=== PATIENT | male | born 1985 | race Caucasian/White ===

== ENCOUNTER 2018-12-27 01:40 | Inpatient (IN) | payer OTHER ==
[~2018-12-27] VITALS: Ht 175.3 cm; Wt 70.3 kg
[2018-12-27 02:20] VITALS: BP 143/89
--- NOTE | 2018-12-27 02:20 | NUR ---
RN OPEN NOTES RECEIVED PATIENT FROM [facility] VIA [employer]. A/O X4. NO SIGNS OF DISTRESS OR DISCOMFORT. BREATHING EVEN AND UNLABORED. ORIENTED PATIENT TO UNIT AND ROOM. ATTACHED TELE MONITORING WITH SR 89 NOTED. HAS IV ACCESS IN R HAND, PATENT AND INTACT, NO SIGNS OF REDNESS OR INFILTRATION. SKIN INTACT, WITH SCARRING FROM PREVIOUS KERR NOTED. BED IN LOW LOCKED POSITION WITH SIDE RAILS X2. CALL LIGHT WITHIN REACH. PT ADVISED TO USE CALL LIGHT FOR ASSISTANCE. WILL CONTINUE TO MONITOR.
[2018-12-27 03:00] VITALS: BP 143/89
[2018-12-27 04:00] VITALS: BP 154/87
[2018-12-27] MEDS ORDERED: LORAZEPAM INJ 2 MG/ML VIAL IV PRN (04:00)
[2018-12-27] MEDS ORDERED: ONDANSETRON HCL/PF 4 MG/2 ML VIAL IVP PRN (04:00)
[2018-12-27] MEDS ORDERED: MAG HYDROX/AL HYDROX/SIMETH 30 ML UDC PO PRN (04:00)
[2018-12-27] MEDS ORDERED: Z GUARD REMEDY 2 OZ OINT TP PRN (04:00)
[2018-12-27] MEDS ORDERED: MAGNESIUM HYDROXIDE 30 ML UDC PO PRN (04:00)
[2018-12-27] MEDS ORDERED: HYDROCODONE/APAP 5/325MG 1 EACH TABLET PO PRN (04:00)
[2018-12-27] MEDS: IV D5/0.45 NACL 1,000 ML IV PRN ×2 (04:21→18:45)
--- NOTE | 2018-12-27 06:26 | NUR ---
RN NOTES ADMINISTERED MORPHINE 2MG IV FOR HEADACHE 02/04 AT PATIENT REQUEST, VSS. WILL CONTINUE TO MONITOR.
[2018-12-27] MEDS ORDERED: MORPHINE SULFATE INJ 2 MG/ML DISP.SYRIN IV PRN (06:30)
[2018-12-27] MEDS: diphenhydrAMINE HCL 50 MG/ML VIAL IV PRN (07:04)
--- NOTE | 2018-12-27 07:04 | NUR ---
RN NOTES ADMINISTERED BENADRYL 25MG IV ORDERED FOR ITCHINESS, AT PATIENT REQUEST. VSS. WILL CONTINUE TO MONITOR.
[2018-12-27 07:17] LABS: BASOPHILS # (AUTO) 0.1 /CMM (0.0-0.2); BASOPHILS % (AUTO) 0.9 % (0.0-2.0); EOSINOPHILS % (AUTO) 0.9 % (0.0-6.0); HEMATOCRIT 29 % (39-51); HEMOGLOBIN 9.3 g/dL (13.5-17.5); LYMPHOCYTES # (AUTO) 2.3 /CMM (0.8-4.8); LYMPHOCYTES % (AUTO) 31.5 % (20.0-44.0); MEAN CORPUSCULAR HGB CONC 32 g/dl (31.0-36.0); MEAN CORPUSCULAR VOLUME 80 fL (80-96); MONOCYTES # (AUTO) 0.8 /CMM (0.1-1.30); MONOCYTES % (AUTO) 11.6 % (2.0-12.0); NEUTROPHILS % (AUTO) 55.1 % (43.0-81.0); PLATELET COUNT (AUTO) 347 /CMM (150-450); RED BLOOD CELL COUNT(AUTO) 3.62 MIL/uL (4.5-6.0); WHITE BLOOD COUNT (AUTO) 7.2 K/uL (4.3-11.0)
--- NOTE | 2018-12-27 07:23 | NUR ---
RN CLOSING NOTES PATIENT AWAKE IN BED. A/OX4. NO SIGNS OF DISTRESS OR DISCOMFORT. BREATHING EVEN AND UNLABORED. ON TELE MONITORING WITH SR 77 NOTED. IV ACCESS IN R HAND WITH D5 1/2NS INFUSING, PATENT AND INTACT, NO SIGNS OF REDNESS OR INFILTRATION. ALL NEEDS MET. NO SIGNIFICANT CHANGES THROUGH THE NIGHT. BED IN LOW LOCKED POSITION WITH SIDE RAILS X2. CALL LIGHT WITHIN REACH. WILL ENDORSE TO AM SHIFT FOR JORDYN.
[2018-12-27 07:27] LABS: ALBUMIN 3.5 g/dL (3.4-5.0); BILIRUBIN,TOTAL 1.8 mg/dL (0.2-1.0); CALCIUM, SERUM 8.9 mg/dL (8.5-10.1); CREATININE 1.1 mg/dL (0.6-1.3); POTASSIUM 3.3 mmol/L (3.5-5.1); TOTAL PROTEIN, SERUM 7.4 g/dL (6.4-8.2)
[2018-12-27] MEDS ORDERED: TRAM50TA2 PO (07:58)
[2018-12-27] MEDS ORDERED: GABA-534 PO (07:58)
[2018-12-27] MEDS ORDERED: CHLO25TA2 PO (07:58)
[2018-12-27] MEDS ORDERED: AMLO10TA7 PO (07:58)
[2018-12-27 08:00] VITALS: BP 146/90
--- NOTE | 2018-12-27 08:00 | NUR ---
RN NOTES RECEIVED PATIENT IN THE BED A/O X4, PATIENT STABLE, NO ACUTE RESPIRATORY DISTRESS. PATIENT TELE HR-90. PATIENT REFUSED PAIN, NO N/V AT THIS TIME. PATIENT AMBULATORY SELF CARE. SCHEDULED MEDICATION ADMINISTERED. INFUSING D5 1/2 NS AT 75 ML HE INTACT. CALL LIGHT WITHIN TO REACH, SAFETY PRECAUTION MAINTAINED ALL THE TIME.
[2018-12-27] MEDS ORDERED: PANTOPRAZOLE 40 MG VIAL IV SCH (09:00)
[2018-12-27] MEDS: POTASSIUM CHLORIDE 20 MEQ TAB.PRT.SR PO SCH ×2 (10:50→10:52)
[2018-12-27] MEDS: NEXIUM 40 MG VIAL IV SCH ×2 (10:50→18:00)
--- NOTE | 2018-12-27 12:00 | NUR ---
RN NOTES PATIENT WALKING AROUND, ADMINISTERED SCHEDULED MEDICATION. SEEN BY Dr. ROLLINS GI SPECIALIST. PATIENT CLEAR LIQUID DIET NOW. ALSO SIGN CONSENT FORM FOR EGD ON SATURDAY SCHEDULED. SAFETY PRECAUTION MAINTAINED ALL THE TIME.
[2018-12-27] MEDS: GABAPENTIN 300 MG CAPSULE PO SCH (13:59)
[2018-12-27] MEDS: TRAMADOL HCL 50 MG TABLET PO SCH ×2 (14:00→18:01)
[2018-12-27] MEDS: AMLODIPINE BESYLATE 10 MG TABLET PO SCH (14:01)
[2018-12-27 16:00] VITALS: BP 148/97
--- NOTE | 2018-12-27 18:30 | NUR ---
RN NOTES PATIENT IN THE BED WATCHING TV. PATIENT REFUSED PAIN, V/S STABLE, NO N/V AT THIS TIME. CALL LIGHT WITHIN TO REACH. SAFETY PRECAUTION MAINTAINED ALL THE TIME. ENDORSED ONCOMING NURSE FOR PLAN OF CARE.
--- NOTE | 2018-12-27 19:30 | NUR ---
RN medsurg opening notes Received Pt from morning nurse. Pt is alert and oriented X4. Pt is sitting in bed comfortably watching TV. Pt denies any pain or discomfort. No nausea or vomiting. Afebrile. Respiration is equal and unlabored. NO SOB. Iv sites on R hand#22g is intact, patent and infusing well D5 1/2NS @ 75ml/hr. Safety precautions is maintained. Bed at low position and call light is within reach. Will continue to monitor.
[2018-12-27 20:00] VITALS: BP 147/95
[2018-12-27] MEDS: ZOLPIDEM TARTRATE 5 MG TABLET PO PRN (21:38)
--- NOTE | 2018-12-27 21:40 | NUR ---
Rn medsurnora notes Administered Ambien per Pt per request. Pt is sitting in bed comfortably watching TV. No SOB. no nausea or vomiting. Will continue to monitor.
[2018-12-27 22:43] LABS: APPEARANCE,URINE CLEAR (CLEAR); BILIRUBIN,URINE NEGATIVE (NEGATIVE); BLOOD, URINE NEGATIVE Ery/uL (NEGATIVE); COLOR,URINE DARK YELLO (YELLOW); KETONES,URINE NEGATIVE (NEGATIVE); LEUKOCYTE ESTERASE ,URINE TRACE (NEGATIVE); NITRITE, URINE NEGATIVE (NEGATIVE); PROTEIN,URINE 1+ mg/dl (NEGATIVE); UGLUCOSE NEGATIVE (NEGATIVE); UROBILINOGEN,URINE >=8.0 EU/dL (0.2)
[2018-12-27 22:49] LABS: BACTERIA,URINE None seen /HPF (None Seen); RBC,URINE NONE SEEN /HPF (0-2); WBC,URINE 21-50 /HPF (0-3)
--- NOTE | 2018-12-28 06:49 | NUR ---
RN medsurg closing notes Pt is resting in bed comfortably with eyes closed. Awaken easily. Pt is alert and oriented X4. Respiration is equal and unlabored. NO SOB. No nausea or vomiting. No pain or any discomfort at this time. IV sites is on R hand #22g , intact, patent and infusing well D5 1/2NS at 75ml/hr. Meds have been given and assisted all needs. Safety precautions is maintained. Bed at low position and call light is within reach. Will endorse to morning nurse for JORDYN.
[2018-12-28 07:39] LABS: BASOPHILS # (AUTO) 0.1 /CMM (0.0-0.2); HEMATOCRIT 28 % (39-51); HEMOGLOBIN 9.2 g/dL (13.5-17.5); LYMPHOCYTES % (AUTO) 38.5 % (20.0-44.0); MEAN CORPUSCULAR HGB CONC 33 g/dl (31.0-36.0); MEAN CORPUSCULAR VOLUME 81 fL (80-96); MONOCYTES # (AUTO) 0.5 /CMM (0.1-1.30); MONOCYTES % (AUTO) 8.7 % (2.0-12.0); NEUTROPHILS # (AUTO) 2.5 /CMM (1.8-8.9); NEUTROPHILS % (AUTO) 47.8 % (43.0-81.0); PLATELET COUNT (AUTO) 310 /CMM (150-450); RED BLOOD CELL COUNT(AUTO) 3.49 MIL/uL (4.5-6.0); WHITE BLOOD COUNT (AUTO) 5.2 K/uL (4.3-11.0)
[2018-12-28 07:52] LABS: CALCIUM, SERUM 8.7 mg/dL (8.5-10.1); MAGNESIUM 1.7 mg/dL (1.8-2.4); PHOSPHORUS 3.7 mg/dL (2.5-4.9); POTASSIUM 3.6 mmol/L (3.5-5.1)
[2018-12-28 08:00] VITALS: BP 144/85
--- NOTE | 2018-12-28 08:00 | NUR ---
RN NOTES Seen patient stable in the room lying in the bed. Patient on clear liquid diet, refused pain, refused n/v at this time, infusing D5 1/2 NS at 75 ml/hr on right hand. patient ambulatory self care. safety precaution maintained all the time.
[2018-12-28] MEDS ORDERED: SPIRONOLACTONE 25 MG TABLET PO SCH (09:00)
[2018-12-28] MEDS ORDERED: SPIRONOLACTONE 50 MG TABLET PO SCH (09:00)
[2018-12-28 09:20] VITALS: BP 144/85
[2018-12-28] MEDS: NEXIUM 40 MG VIAL IV SCH ×2 (09:54→17:12)
[2018-12-28] MEDS: AMLODIPINE BESYLATE 10 MG TABLET PO SCH (09:55)
[2018-12-28] MEDS: GABAPENTIN 300 MG CAPSULE PO SCH (09:56)
[2018-12-28] MEDS: TRAMADOL HCL 50 MG TABLET PO SCH ×2 (09:57→17:12)
[2018-12-28] MEDS ORDERED: MGSO4/D5W 100 ML IV ONE (10:00)
[2018-12-28] MEDS ORDERED: Magnesium 1GM/D5W 100ML PREMIX PIGGYBACK IV ONE (10:00)
[2018-12-28] MEDS: IV D5/0.45 NACL 1,000 ML IV PRN (10:03)
--- NOTE | 2018-12-28 11:10 | NUR ---
rn notes restart new iv line gauge 22 on left wrist. Infusing Magnesium 1 g iv per med order. safety precaution maintained all the time.
[2018-12-28 15:53] VITALS: BP 145/89
--- NOTE | 2018-12-28 18:30 | NUR ---
RN NOTES PATIENT STABLE SCHEDULED MEDICATION ADMINISTERED. V/S STABLE. PATIENT WALKING IN THE HALLWAY. ENDORSED ONCOMING NURSE PLAN OF CARE.
--- NOTE | 2018-12-28 19:00 | NUR ---
RN medsurnora opening notes Received Pt from morning nurse. Pt is alert and oriented X4. Pt is ambulating in room. Steady gait. Pt denies any pain or any discomfort at this time. respiration is equal and unlabored. No nausea or vomiting. Afebrile. IV sites on L Wrist is intact, patent and infusing well D5 1/2 NS @ 75ml/hr. Safety precautions is maintained. Bed at low position and call light is within reach. Will continue to monitor and assist all needs.
[2018-12-28 20:00] VITALS: BP 154/97
[2018-12-28] MEDS: diphenhydrAMINE HCL 50 MG/ML VIAL IV PRN (20:31)
--- NOTE | 2018-12-28 20:43 | NUR ---
RN medsurg notes Administered Benadryl Inj 25mg IV push as ordered for itchiness per Pt request. VS is stable. Will continue to monitor.
--- NOTE | 2018-12-28 20:47 | NUR ---
STEPHON johnson notes Pt is going for EGD procedure tomorrow. Pt status is NPO now. Informed and educated the Pt about the EGD procedure. Pt verbalized understanding. Will continue to monitor.
--- NOTE | 2018-12-28 23:04 | NUR ---
RN medr notes Pt is resting in bed comfortably with eyes closed. Awaken easily. Pt denies any pain or any discomfort. NO SOB. No nausea or vomiting. Will continue to monitor.
[2018-12-29] MEDS: ZOLPIDEM TARTRATE 5 MG TABLET PO PRN (01:59)
--- NOTE | 2018-12-29 02:02 | NUR ---
RN medsurg notes Administered Ambien 5mg for sleeping per Pt request. VS is stable. Will continue to monitor.
[2018-12-29] MEDS: IV D5/0.45 NACL 1,000 ML IV PRN (02:20)
[2018-12-29 06:43] LABS: BASOPHILS % (AUTO) 0.8 % (0.0-2.0); HEMATOCRIT 33 % (39-51); HEMOGLOBIN 10.3 g/dL (13.5-17.5); LYMPHOCYTES # (AUTO) 1.8 /CMM (0.8-4.8); LYMPHOCYTES % (AUTO) 40.2 % (20.0-44.0); MEAN CORPUSCULAR HGB CONC 32 g/dl (31.0-36.0); MEAN CORPUSCULAR VOLUME 81 fL (80-96); MONOCYTES # (AUTO) 0.4 /CMM (0.1-1.30); MONOCYTES % (AUTO) 8.9 % (2.0-12.0); NEUTROPHILS # (AUTO) 2.1 /CMM (1.8-8.9); NEUTROPHILS % (AUTO) 46.1 % (43.0-81.0); PLATELET COUNT (AUTO) 345 /CMM (150-450); RED BLOOD CELL COUNT(AUTO) 4.03 MIL/uL (4.5-6.0); WHITE BLOOD COUNT (AUTO) 4.6 K/uL (4.3-11.0)
[2018-12-29 06:46] LABS: CALCIUM, SERUM 9.4 mg/dL (8.5-10.1); MAGNESIUM 2.2 mg/dL (1.8-2.4); PHOSPHORUS 4.2 mg/dL (2.5-4.9); POTASSIUM 4.1 mmol/L (3.5-5.1)
--- NOTE | 2018-12-29 07:00 | NUR ---
RN medsurg closing notes Pt is resting in bed comfortably with eyes closed. Awaken easily. Pt is alert and oriented X4. Respiration is equal and unlabored. NO SOB. No nausea or vomiting. No pain or any discomfort at this time. Pt is NPO for EGD procedure today at 0900 am. Informed consent has been signed. IV sites is on L wrist #22g, intact, patent and infusing well D5 1/2NS at 75ml/hr. Pt tolerating well. PRN meds have been given as ordered. All needs met. Safety precautions is maintained. Bed at low position and call light is within reach. Will endorse to morning nurse for JORDYN.
--- NOTE | 2018-12-29 07:30 | NUR ---
m/s fondant cooker: initial assessment received pt in bed awake, a/ox4; ambulatory. pt for egd, kept pt npo. all consents in chart. no c/o n/v/d. instructed to call for assistance. will continue to monitor.
--- NOTE | 2018-12-29 08:40 | NUR ---
m/s corrective therapy aide teacher: notes picked up by o.r. team at this time via gurney with chart.
[2018-12-29 08:41] VITALS: BP 137/88
[2018-12-29] MEDS ORDERED: ANESTHESIA TRAY IN PYXIS 1 EA TRAY MC ONE (09:04)
--- NOTE | 2018-12-29 09:55 | NUR ---
m/s residential carpenter: notes received pt from recovery room awake, a/ox4. pt ambulate to his room and eager to go home. pt got dress. pt for d'c home today per dr. caldera. awaiting order.
--- NOTE | 2018-12-29 10:00 | NUR ---
m/s university internship: notes order received from dr. caldera with prescription. order acknowledged.
--- NOTE | 2018-12-29 10:10 | NUR ---
m/s clinical nursing instructor: notes noted pt walking out by the elevator. ask pt to go back to his room and will prefer his discharge instructions, stated, "i want to go home now."
--- NOTE | 2018-12-29 10:30 | NUR ---
m/s dragsaw operator: notes discharge instructions with prescription given to pt and verbalized understanding. pt request for notes from work and given by dr. caldera. h/l removed with tip intact. pt called his sister to pick him up. late breakfast served. will continue to monitor.
[2018-12-29] MEDS: NEXIUM 40 MG VIAL IV SCH (11:12)
[2018-12-29] MEDS ORDERED: PANTOPRAZOLE 40 MG TABLET.DR PO SCH (11:30)
--- NOTE | 2018-12-29 11:52 | NUR ---
m/s holter technician: discharged discharged home accompanied by sister via private car in stable condition with all valuables and d'c papers.
== END 2018-12-29 11:50 | disposition home or self-care (01) | DRG 241 ==
LOC: TELE 02:15 → MED 09:18
PROVIDERS: ADMIT Nurse Practitioner Acute Care
PROC: 0DB78ZX Excision of Stomach, Pylorus, Via Natural or Artificial Opening Endoscopic, Diagnostic (ICD-10-PCS; principal; 2018-12-29)
DX: K29.71 Gastritis, unspecified, with bleeding (principal); D63.8 Anemia in other chronic diseases classified elsewhere; E86.0 Dehydration; K21.0 Gastro-esophageal reflux disease with esophagitis; E87.6 Hypokalemia; K44.9 Diaphragmatic hernia without obstruction or gangrene; M19.90 Unspecified osteoarthritis, unspecified site; I10 Essential (primary) hypertension; M79.2 Neuralgia and neuritis, unspecified; F41.9 Anxiety disorder, unspecified; Z87.11 Personal history of peptic ulcer disease
CPT/HCPCS: 36415; 80048-TC; 80053-TC; 80061-TC; 81000-TC; 83735-TC; 84100-TC; 85025-TC; 85610-TC; 87081-TC; 87086-TC; 88305-TC; 88313-TC; 88342; G0378; J1200; J2270; J2704; J3475; J3490

== ENCOUNTER 2021-02-17 19:11 | Emergency (ER) | payer OTHER ==
[~2021-02-17] VITALS: Ht 175.3 cm; Wt 81.6 kg
[~2021-02-17 19:11] MED LIST: AMLO-213 PO; CHLO25TA2 PO; GABA-534 PO; TRAM50TA2 PO
--- NOTE | 2021-02-17 19:25 | NUR ---
PATIENT C/O ABDOMEN WITH CHEST AREA PAIN FROM INDIGESTION, HX OF ULCER. PATIENT IS A/OX 4, RR EVEN AND UNLABORED, NO SOB NTOED. PATIENT CONNECTED TO CURATOR OF PHOTOGRAPHY AND PRINTS. WILL CONTINUE TO MONITOR.
[2021-02-17] MEDS ORDERED: LIDOCAINE VISCOUS 2% UD 15 ML UDC ONE (19:53)
[2021-02-17] MEDS ORDERED: FAMOTIDINE (20 MG) 20 MG TABLET ONE (19:53)
[2021-02-17] MEDS ORDERED: MAG HYDROX/AL HYDROX/SIMETH 30 ML UDC ONE (19:53)
[2021-02-17] MEDS: MAG HYDROX/AL HYDROX/SIMETH 30 ML UDC PO ONE (19:58)
[2021-02-17] MEDS: LIDOCAINE VISCOUS 2% UD 15 ML UDC MM ONE (19:58)
[2021-02-17] MEDS: FAMOTIDINE (20 MG) 20 MG TABLET PO ONE (19:58)
[2021-02-17 20:11] LABS: BASOPHILS # (AUTO) 0.1 K/uL (0.0-0.2); BASOPHILS % (AUTO) 1.6 % (0.0-2.0); EOSINOPHILS % (AUTO) 0.7 % (0.0-6.0); HEMATOCRIT 30 % (39-51); HEMOGLOBIN 8.9 g/dL (13.5-17.5); LYMPHOCYTES # (AUTO) 2.8 K/uL (0.8-4.8); LYMPHOCYTES % (AUTO) 41.4 % (20.0-44.0); MEAN CORPUSCULAR HGB CONC 30 g/dl (31.0-36.0); MEAN CORPUSCULAR VOLUME 69 fL (80-96); MONOCYTES % (AUTO) 14.9 % (2.0-12.0); NEUTROPHILS # (AUTO) 2.8 K/uL (1.8-8.9); NEUTROPHILS % (AUTO) 41.4 % (43.0-81.0); PLATELET COUNT (AUTO) 289 K/uL (150-450); RED BLOOD CELL COUNT(AUTO) 4.27 MIL/uL (4.5-6.0); WHITE BLOOD COUNT (AUTO) 6.9 K/uL (4.3-11.0)
[2021-02-17 20:25] LABS: CALCIUM, SERUM 8.3 mg/dL (8.5-10.1); CREATININE 0.9 mg/dL (0.6-1.3); POTASSIUM 3.5 mmol/L (3.5-5.1)
[2021-02-17 20:31] LABS: ALBUMIN 3.4 g/dL (3.4-5.0); BILIRUBIN,DIRECT 0.2 mg/dL (0.0-0.2); BILIRUBIN,TOTAL 0.2 mg/dL (0.2-1.0); TOTAL PROTEIN, SERUM 8.7 g/dL (6.4-8.2)
[2021-02-17] MEDS ORDERED: ONDANSETRON HCL/PF 4 MG/2 ML VIAL ONE (20:52)
[2021-02-17] MEDS ORDERED: MORPHINE SULFATE INJ 4 MG/ML DISP.SYRIN ONE (20:52)
[2021-02-17] MEDS: IV NS 0.9% 1,000 ML BAG IV ONE (20:57)
[2021-02-17] MEDS: ONDANSETRON HCL/PF 4 MG/2 ML VIAL IVP ONE (21:02)
[2021-02-17] MEDS: MORPHINE SULFATE INJ 2 MG/ML DISP.SYRIN IV ONE (21:02)
[2021-02-17 21:31] LABS: LYMPHOCYTES % (MANUAL) 45 % (16-48); MONOCYTES % (MANUAL) 11 % (0-11.0); NEUTROPHILS % (MANUAL) 44 (42-76)
[2021-02-17] MEDS ORDERED: HYDROMORPHONE 1 MG/1 ML DISP.SYRIN ONE (22:36)
[2021-02-17] MEDS: HYDROMORPHONE 1 MG/1 ML DISP.SYRIN IV ONE (22:41)
[2021-02-17] MEDS ORDERED: DICY10CA37 PO (22:44)
[2021-02-17] MEDS ORDERED: SUCR1TAB PO (22:44)
[2021-02-17] MEDS ORDERED: PANT40TA2 PO (22:44)
--- NOTE | 2021-02-17 23:15 | NUR ---
Patient discharged to home in stable condition. Rx and Written and verbal after care instructions given. Patient verbalizes understanding of instruction.
[2021-02-18 00:57] VITALS: BP 128/67
== END 2021-02-18 00:58 | disposition home or self-care (01) ==
LOC: ER 20:41
DX: K85.90 Acute pancreatitis without necrosis or infection, unspecified (principal); D64.9 Anemia, unspecified; R11.2 Nausea with vomiting, unspecified; I10 Essential (primary) hypertension; Z98.890 Other specified postprocedural states; Z88.1 Allergy status to other antibiotic agents; Z91.048 Other nonmedicinal substance allergy status; Z79.899 Other long term (current) drug therapy
CPT/HCPCS: 36415; 76705; 80048; 80076; 83690; 85007; 85025; 96361; 96374; 96375; 99284; J1170; J2270; J2405; J7030

== ENCOUNTER 2021-03-02 08:43 | Inpatient (IN) | payer OTHER ==
[~2021-03-02] VITALS: Ht 175.3 cm; Wt 78.0 kg
[~2021-03-02 08:43] MED LIST changes: +DICY10CA37 PO; +PANT40TA2 PO; +SUCR1TAB PO
--- NOTE | 2021-03-02 08:49 | NUR ---
TO ER BED 3, C/O INTERMITTENT NAUSEA AND VOMITING WITH EPIGASTRIC PAIN, ATTACHED TO MONITOR, SALINE LOCK ESTABLISHED
[2021-03-02] MEDS ORDERED: FAMOTIDINE/PF INJ 20 MG/2 ML VIAL IV ONE ×2 (09:00→09:36)
[2021-03-02 09:21] LABS: BASOPHILS # (AUTO) 0.1 K/uL (0.0-0.2); BASOPHILS % (AUTO) 1.6 % (0.0-2.0); EOSINOPHILS % (AUTO) 0.1 % (0.0-6.0); HEMATOCRIT 29 % (39-51); LYMPHOCYTES # (AUTO) 0.9 K/uL (0.8-4.8); LYMPHOCYTES % (AUTO) 12.4 % (20.0-44.0); MEAN CORPUSCULAR HGB CONC 31 g/dl (31.0-36.0); MEAN CORPUSCULAR VOLUME 67 fL (80-96); MONOCYTES # (AUTO) 1.1 K/uL (0.1-1.30); MONOCYTES % (AUTO) 15.5 % (2.0-12.0); NEUTROPHILS # (AUTO) 5.2 K/uL (1.8-8.9); NEUTROPHILS % (AUTO) 70.4 % (43.0-81.0); PLATELET COUNT (AUTO) 300 K/uL (150-450); RED BLOOD CELL COUNT(AUTO) 4.32 MIL/uL (4.5-6.0); WHITE BLOOD COUNT (AUTO) 7.4 K/uL (4.3-11.0)
[2021-03-02 09:29] LABS: CREATININE 1.3 mg/dL (0.6-1.3); POTASSIUM 3.3 mmol/L (3.5-5.1)
[2021-03-02 09:35] LABS: ALBUMIN 3.7 g/dL (3.4-5.0); BILIRUBIN,DIRECT 0.6 mg/dL (0.0-0.2); BILIRUBIN,TOTAL 1.5 mg/dL (0.2-1.0); TOTAL PROTEIN, SERUM 9.3 g/dL (6.4-8.2)
--- NOTE | 2021-03-02 09:55 | NUR ---
HOSPITAL SUPERVISOR AT BEDSIDE
[2021-03-02] MEDS ORDERED: ASPIRIN EC 325 MG TABLET.DR PO ONE ×2 (09:56→10:00)
[2021-03-02] MEDS ORDERED: ZOLP5TAB8 PO (10:04)
--- NOTE | 2021-03-02 10:04 | NUR ---
CALLED CARDIO [phone] BLAKE
--- NOTE | 2021-03-02 10:56 | NUR ---
[facility] CASH REGISTER BALANCER CALLED [phone] RE PT STATUS
--- NOTE | 2021-03-02 11:34 | NUR ---
COVID SWAB DEONE AND SENT TO LAB
[2021-03-02 11:47] LABS: LYMPHOCYTES % (MANUAL) 11 % (16-48); MONOCYTES % (MANUAL) 12 % (0-11.0); NEUTROPHILS % (MANUAL) 77 (42-76)
[2021-03-02] MEDS ORDERED: ACETAMINOPHEN 325 MG TABLET PO PRN (12:00)
[2021-03-02] MEDS ORDERED: DICYCLOMINE HCL 10 MG CAPSULE PO PRN (12:00)
[2021-03-02] MEDS ORDERED: HYDROCODONE/APAP 5/325MG TABLET PO PRN (12:00)
[2021-03-02] MEDS ORDERED: MAGNESIUM HYDROXIDE 30 ML UDC PO PRN (12:00)
[2021-03-02] MEDS: PANTOPRAZOLE 40 MG TABLET.DR PO SCH (12:00)
[2021-03-02] MEDS ORDERED: Z GUARD REMEDY 2 OZ OINT TP PRN (12:00)
[2021-03-02] MEDS ORDERED: ONDANSETRON HCL/PF 4 MG/2 ML VIAL IVP PRN (12:00)
[2021-03-02] MEDS ORDERED: HOME MED MISCELLANEOUS XX SCH (12:00)
[2021-03-02] MEDS ORDERED: MORPHINE SULFATE INJ 2 MG/ML DISP.SYRIN IV PRN (12:00)
--- NOTE | 2021-03-02 12:14 | NUR ---
VENOUS US AT BEDSIDE
--- NOTE | 2021-03-02 14:01 | NUR ---
GAVE REPORT TO GELY SZYMANSKI FOR JORDYN
--- NOTE | 2021-03-02 14:40 | NUR ---
RN NOTE RECEIVED REPORT FROM STEPHON GRAVES. PATIENT WAS BROUGHT TO RM 307-1 VIA [facility]. A/O X 4. AMBULATORY. VS BP 147/105 CA 84 RR 18 T 98 SA02 99%. ON ROOM AIR, NO SOB NOTED. IN NO APPARENT DISTRESS. IV ACCESS ON R HAND #22 G, INTACT AND PATENT. SAFETY MEASURES MAINTAINED. BED IN LOWEST POSITION, BRAKES LOCKED. SIDE RAILS UP X2. CALL LIGHT WITHIN REACH. WILL CONTINUE PLAN OF CARE.
[2021-03-02] MEDS: TRAMADOL HCL 50 MG TABLET PO SCH (16:59)
[2021-03-02] MEDS: SUCRALFATE 1 G TABLET PO SCH (17:22)
--- NOTE | 2021-03-02 18:05 | NUR ---
RN CLOSING NOTE PATIENT RESTING IN BED. A/O X 4. AMBULATORY. ON ROOM AIR, SATURATING WELL AT 99%. NO SOB NOTED. IN NO APPARENT DISTRESS. IV ACCESS ON R HAND #22 G, INTACT AND PATENT. DUE MEDS GIVEN ORDERED. ABLE TO MAKE NEEDS KNOWN. SAFETY MEASURES MAINTAINED. BED IN LOWEST POSITION, BRAKES LOCKED. SIDE RAILS UP X2. KEPT CALL LIGHT WITHIN REACH. WILL ENDORSE CONTINUITY OF CARE TO ONCOMING SHIFT.
--- NOTE | 2021-03-02 19:02 | NUR ---
RN NOTE PULLED OUT ANOTHER SUCRALFATE PO TAB D/T PT GAGGED AND MEDICATION FELL ON THE FLOOR.
--- NOTE | 2021-03-02 19:30 | NUR ---
RN OPENING NOTE PATIENT IS AMBULATING IN HIS ROOM, PATIENT IS A/O X 4, ABLE TO MAKE NEEDS KNOWN. PATIENT'S TELE MONITOR READS [address] WITH INVERTED T WAVE. PATIENT TOLERATES ROOM AIR, BREATHING EVEN AND UNLABORED. NO COMPLAINS OF CHEST PAIN, N/V AT THIS TIME. R HAND IV ACCESS PATENT AND INTACT. SAFETY MEASURES IN PLACE: BED IN LOCKED AND IN LOWEST POSITION, CALL LIGHT WITHIN REACH, SIDE RAILS UP. WILL MONITOR PATIENT CLOSELY.
[2021-03-02 20:00] VITALS: BP 155/98
[2021-03-02] MEDS: TEMAZEPAM 15 MG CAPSULE PO PRN (21:07)
[2021-03-03] VITALS: BP 106/54
[2021-03-03] MEDS: MAG HYDROX/AL HYDROX/SIMETH 30 ML UDC PO PRN (01:19)
--- NOTE | 2021-03-03 01:20 | NUR ---
RN NOTE PATIENT COMPLAINING OF HEART BURN, MAALOX GIVEN.
[2021-03-03 04:00] VITALS: BP 144/99
[2021-03-03 05:49] LABS: BILIRUBIN,URINE MODERATE (NEGATIVE); LEUKOCYTE ESTERASE ,URINE Negative (NEGATIVE); NITRITE, URINE Positive (NEGATIVE); PROTEIN,URINE 100 mg/dl (NEGATIVE); UGLUCOSE Negative (NEGATIVE); UROBILINOGEN,URINE >=8.0 EU/dL (0.2)
[2021-03-03 05:58] LABS: COLOR,URINE ORANGE (YELLOW)
[2021-03-03 05:59] LABS: BACTERIA,URINE None seen /HPF (None Seen); SQUAMOUS EPITHELIAL CELL,UR Few /HPF (None Seen)
[2021-03-03 06:00] LABS: RBC,URINE 0-2 /HPF (0-2)
[2021-03-03 06:06] LABS: BASOPHILS # (AUTO) 0.1 K/uL (0.0-0.2); BASOPHILS % (AUTO) 0.9 % (0.0-2.0); EOSINOPHILS % (AUTO) 1.7 % (0.0-6.0); HEMATOCRIT 27 % (39-51); HEMOGLOBIN 8.2 g/dL (13.5-17.5); LYMPHOCYTES # (AUTO) 1.5 K/uL (0.8-4.8); LYMPHOCYTES % (AUTO) 27.8 % (20.0-44.0); MEAN CORPUSCULAR HGB CONC 31 g/dl (31.0-36.0); MEAN CORPUSCULAR VOLUME 68 fL (80-96); MONOCYTES % (AUTO) 17.5 % (2.0-12.0); NEUTROPHILS # (AUTO) 2.9 K/uL (1.8-8.9); NEUTROPHILS % (AUTO) 52.1 % (43.0-81.0); PLATELET COUNT (AUTO) 251 K/uL (150-450); RED BLOOD CELL COUNT(AUTO) 3.89 MIL/uL (4.5-6.0); WHITE BLOOD COUNT (AUTO) 5.5 K/uL (4.3-11.0)
[2021-03-03 06:41] LABS: MAGNESIUM 1.9 mg/dL (1.8-2.4); PHOSPHORUS 5.1 mg/dL (2.5-4.9); POTASSIUM 2.9 mmol/L (3.5-5.1)
[2021-03-03 06:52] LABS: THYROID STIMULATING HORMONE 1.698 uIU/mL (0.358-3.74)
--- NOTE | 2021-03-03 07:15 | NUR ---
RN CLOSING NOTE PATIENT AWAKE, SITTING UP ON THE BED. NO SIGNIFICANT CHANGES IN HIS CONDITION. PER CHARGE NURSE, PATIENT NEEDS TO HAVE AT LEAST 18 G IV ACCESS, PATIENT HAS 22 G. PATIENT REFUSES TO HAVE ANOTHER IV INSERTED. NO COMPLAINS AT THIS TIME. PATIENT IS SR 85 BPM WITH INVERTED T WAVE. NPO STATUS MAINTAINED FOR CT ANGIO HEART TODAY. ALL NEEDS MET AND ATTENDED, ALL ORDERS CARRIED OUT. SAFETY MEASURES IMPLEMENTED. WILL ENDORSE TO DAY SHIFT NURSE FOR JORDYN.
--- NOTE | 2021-03-03 08:00 | NUR ---
RN OPENING NOTE PT AWAKE IN BED RESTING. ON RA WITH NO SOB OR RESPIRATORY DISTRESS PRESENT. A/O X4 AND WELSH SPEAKING, ABLE TO MAKE NEEDS KNOWN. NO COMPLAINT OF PAIN OR NAUSEA. ON RESTAURANT GENERAL MANAGER. NO EDEMA PRESENT. PT IS SELF AMBULATORY WITH BATHROOM PRIVILEGES. SKIN CRUSTING PRESENT. IV PRESENT ON R HAND 22G AND FLUSHES WELL. LABS AND ORDERS REVIEWED. SAFETY MEASURES IN PLACE. SIDE RAILS RAISED. BED LOWERED. CALL LIGHT WITHIN REACH. WILL CONTINUE TO MONITOR.
[2021-03-03 08:38] VITALS: BP 147/94
[2021-03-03] MEDS: GABAPENTIN 300 MG CAPSULE PO SCH (09:50)
[2021-03-03] MEDS: ASPIRIN 81 MG TAB.CHEW PO SCH (09:50)
[2021-03-03] MEDS: PANTOPRAZOLE 40 MG TABLET.DR PO SCH (09:50)
[2021-03-03] MEDS: AMLODIPINE BESYLATE 10 MG TABLET PO SCH (09:50)
[2021-03-03] MEDS: SUCRALFATE 1 G TABLET PO SCH ×3 (09:50→16:12)
[2021-03-03] MEDS: TRAMADOL HCL 50 MG TABLET PO SCH ×2 (09:53→16:13)
[2021-03-03] MEDS: POTASSIUM CHLORIDE 20 MEQ TAB.PRT.SR PO SCH ×3 (10:10→12:51)
[2021-03-03] MEDS ORDERED: NITROGLYCERIN 0.4 MG/TAB BOTTLE SL PRN (11:30)
[2021-03-03] MEDS ORDERED: NITROGLYCERIN 0.4 MG/TAB BOTTLE ONE (12:12)
[2021-03-03] MEDS ORDERED: CT SWABBABLE VALVE TRANS SET 1 EA INFUS.SET MC ONE (12:12)
[2021-03-03] MEDS ORDERED: IV NS 0.9% 250 ML IV ONE (12:12)
[2021-03-03] MEDS ORDERED: METOPROLOL TARTRATE INJ 5 MG/5 ML AMPUL ONE ×4 (12:12→12:57)
[2021-03-03] MEDS ORDERED: IOHEXOL-350 100 ML VIAL IV ONE (12:12)
--- NOTE | 2021-03-03 12:12 | NUR ---
RN NOTE MIDLINE INSERTED ON DAVID AND FLUSHES WELL. CHAIR CAR ATTENDANT APPROVED BARBARA. WILL CONTINUE TO MONITOR.
[2021-03-03] MEDS: METOPROLOL TARTRATE INJ 5 MG/5 ML AMPUL IVP PRN ×9 (12:20→13:00)
[2021-03-03 12:30] LABS: EOSINOPHILS % (MANUAL) 3 % (0-4); LYMPHOCYTES % (MANUAL) 30 % (16-48); MONOCYTES % (MANUAL) 14 % (0-11.0); NEUTROPHILS % (MANUAL) 53 (42-76)
[2021-03-03] MEDS ORDERED: IV NS 0.9% 500 ML IV PRN (12:30)
[2021-03-03] MEDS ORDERED: NITROGLYCERIN 0.4 MG/TAB BOTTLE SL ONE (12:30)
--- NOTE | 2021-03-03 13:05 | NUR ---
PT CONSENTED TO cta HEART; aaoX4 DENIES cp OR sob; mETOPROLOL 5 MG/IVP every 5 minutes x 9 doses given and NTG 0.4 mg SL goven, tolerated procedure; sent back to floor via wheelchair by A Cedric RN; report given to floor RN
[2021-03-03 17:08] VITALS: BP 123/86
--- NOTE | 2021-03-03 19:30 | NUR ---
TELERN SEEN AMBULATING AROUND HALLWAYS, STATED WANTED TO TAKE HIS RESTORIL EARLY TONIGHT AND TAKES AWHILE TO WORK FOR HIM. NO OTHER NEEDS FOR NOW, PAINFREE, NO SOB. SAFETY PRECAUTIONS EMPHASIZED, WELL UNDERSTOOD. SR ON THE MONITOR, TO CONTINUE.
--- NOTE | 2021-03-03 19:32 | NUR ---
RN CLOSING NOTE PT AWAKE IN BED RESTING. ON RA WITH NO SOB OR RESPIRATORY DISTRESS PRESENT. A/O X4 AND [place] SPEAKING, ABLE TO MAKE NEEDS KNOWN. NO COMPLAINT OF PAIN OR NAUSEA. ON WHEEL FILLER. NO EDEMA PRESENT. PT IS SELF AMBULATORY WITH BATHROOM PRIVILEGES. SKIN CRUSTING PRESENT. MIDLINE PRESENT ON R UA 18G AND FLUSHES WELL. ROUTINE MEDS GIVEN. LABS AND ORDERS REVIEWED. SAFETY MEASURES IN PLACE. SIDE RAILS RAISED. BED LOWERED. CALL LIGHT WITHIN REACH. REPORT GIVEN TO NIGHT NURSE FOR JORDYN.
[2021-03-03 20:00] VITALS: BP 124/84
[2021-03-03] MEDS: TEMAZEPAM 15 MG CAPSULE PO PRN (20:07)
--- NOTE | 2021-03-03 20:10 | NUR ---
TELERN ON BED, RESTORIL 30 MG PO ADMINISTERED. NO OTHER NEEDS MADE, REMINDED TO CALL STAFF FOR ANY DISCOMFORTS AND NEEDS. CALL LIGHT WITHIN REACH. CONTINUED MONITORING.
[2021-03-03 20:27] VITALS: BP 124/84
[2021-03-04] VITALS: BP 121/82
[2021-03-04 04:00] VITALS: BP 121/82
--- NOTE | 2021-03-04 06:45 | NUR ---
TELERN NO CP. LABS DRAWN. ALL NEEDS MADE.
--- NOTE | 2021-03-04 07:46 | NUR ---
CHIEF DEPUTY CLERK/BAILIFF OPENING NOTES RECEIVED PATIENT IN BED, ASLEEP. PATIENT ON ROOM AIR; BREATHING EVEN AND UNLABORED, NO SOB PRESENT. TELE MONITOR WITH A CURRENT READING OF SR-ST 98-101 BPM. NO S/S OF PAIN SUCH FACIAL GRIMACING, MOANING OR GUARDING PRESENT. DAVID MIDLINE PRESENT AND INTACT. SAFETY PRECAUTIONS IN PLACE; BED IN LOW POSITION AND LOCKED, RAILS UP X2, CALL LIGHT WITHIN REACH. WILL CONTINUE TO MONITOR PATIENT.
[2021-03-04 07:54] VITALS: BP 128/92
[2021-03-04] MEDS: PANTOPRAZOLE 40 MG TABLET.DR PO SCH (08:27)
[2021-03-04] MEDS: GABAPENTIN 300 MG CAPSULE PO SCH (08:27)
[2021-03-04] MEDS: SUCRALFATE 1 G TABLET PO SCH ×3 (08:27→16:05)
[2021-03-04] MEDS: ASPIRIN 81 MG TAB.CHEW PO SCH (08:27)
[2021-03-04] MEDS: AMLODIPINE BESYLATE 10 MG TABLET PO SCH (08:28)
[2021-03-04] MEDS: TRAMADOL HCL 50 MG TABLET PO SCH ×2 (08:28→16:05)
[2021-03-04 09:24] LABS: CREATININE 1.1 mg/dL (0.6-1.3); POTASSIUM 3.1 mmol/L (3.5-5.1)
[2021-03-04 12:00] VITALS: BP 126/87
[2021-03-04] MEDS ORDERED: PANT40TA2 PO (12:05)
[2021-03-04] MEDS ORDERED: TRAM50TA PO (12:05)
[2021-03-04] MEDS ORDERED: ZOLP5TAB2 PO (12:05)
[2021-03-04] MEDS ORDERED: POTASSIUM CHLORIDE 20 MEQ TAB.PRT.SR PO ONE (12:30)
[2021-03-04] MEDS: MAG HYDROX/AL HYDROX/SIMETH 30 ML UDC PO PRN (15:30)
[2021-03-04 16:00] VITALS: BP 142/89
--- NOTE | 2021-03-04 17:48 | NUR ---
SUPERVISOR RECLAMATIONPASSPORT SUPPORT MANAGER NOTES PATIENT DISCHARGED HOME IN MEDICALLY STABLE CONDITION. PATIENT A/O X4 ABLE TO MAKE NEEDS KNOWN. ALL DISCHARGE PAPERWORK READY AND SIGNED BY PATIENT. TEACHING REGARDING PHYSICIAN INSTRUCTIONS AND DISCHARGE MEDICATIONS PROVIDED; PATIENT VERBALIZED UNDERSTANDING. BELONGINGS ACCOUNTED FOR AND FORM SIGNED WELL. PHOTOS TAKEN AND FILED. PATIENT LEFT THE UNIT ACCOMPANIED BY QUARTER SEAMER. PATIENT WAS PROVIDED WITH A TAP CARD FOR THE BUS. PATIENT LEFT THE UNIT AT 1750.
== END 2021-03-04 17:50 | disposition home or self-care (01) | DRG 190 ==
LOC: ER 09:34 → TELE 14:09
PROVIDERS: ADMIT Nurse Practitioner Acute Care; ATTEND Nurse Practitioner Acute Care
DX: I21.A1 Myocardial infarction type 2 (principal); E87.1 Hypo-osmolality and hyponatremia; K81.9 Cholecystitis, unspecified; K86.1 Other chronic pancreatitis; D50.9 Iron deficiency anemia, unspecified; F10.10 Alcohol abuse, uncomplicated; F17.200 Nicotine dependence, unspecified, uncomplicated; E87.6 Hypokalemia; G89.29 Other chronic pain; I10 Essential (primary) hypertension; K21.9 Gastro-esophageal reflux disease without esophagitis; Z98.890 Other specified postprocedural states; Z88.1 Allergy status to other antibiotic agents; Z91.011 Allergy to milk products; Z79.899 Other long term (current) drug therapy; Y90.9 Presence of alcohol in blood, level not specified; Z87.19 Personal history of other diseases of the digestive system; Z87.828 Personal history of other (healed) physical injury and trauma; R79.89 Other specified abnormal findings of blood chemistry
CPT/HCPCS: 36415; 71045-TC; 75574; 80048-TC; 80061-TC; 80076-TC; 81001; 83690-TC; 83735-TC; 84100-TC; 84443-TC; 84484-TC; 85025-TC; 86850-TC; 87081-TC; 87086-TC; 93307-TC; C9803; G0378; J2270; J3490; J7050; Q9967

== ENCOUNTER 2021-03-06 01:29 | Emergency (ER) | payer OTHER ==
[~2021-03-06] VITALS: Ht 175.3 cm; Wt 78.0 kg
[~2021-03-06 01:29] MED LIST changes: +TRAM50TA PO; +ZOLP5TAB2 PO; +ZOLP5TAB8 PO
[2021-03-06 02:23] LABS: BASOPHILS # (AUTO) 0.1 K/uL (0.0-0.2); BASOPHILS % (AUTO) 1.2 % (0.0-2.0); EOSINOPHILS % (AUTO) 1.8 % (0.0-6.0); HEMATOCRIT 30 % (39-51); HEMOGLOBIN 9.2 g/dL (13.5-17.5); LYMPHOCYTES % (AUTO) 24.7 % (20.0-44.0); MEAN CORPUSCULAR HGB CONC 30 g/dl (31.0-36.0); MEAN CORPUSCULAR VOLUME 69 fL (80-96); MONOCYTES # (AUTO) 1.3 K/uL (0.1-1.30); MONOCYTES % (AUTO) 16.4 % (2.0-12.0); NEUTROPHILS # (AUTO) 4.6 K/uL (1.8-8.9); NEUTROPHILS % (AUTO) 55.9 % (43.0-81.0); PLATELET COUNT (AUTO) 291 K/uL (150-450); WHITE BLOOD COUNT (AUTO) 8.2 K/uL (4.3-11.0)
[2021-03-06 02:27] LABS: CREATININE 1.3 mg/dL (0.6-1.3); POTASSIUM 3.5 mmol/L (3.5-5.1)
[2021-03-06 02:31] LABS: CALCIUM, SERUM 9.3 mg/dL (8.5-10.1)
--- NOTE | 2021-03-06 02:35 | NUR ---
PATIENT TO CT
[2021-03-06] MEDS ORDERED: IOHEXOL-300 100 ML VIAL IV ONE (03:04)
[2021-03-06 04:42] LABS: EOSINOPHILS % (MANUAL) 1 % (0-4); LYMPHOCYTES % (MANUAL) 21 % (16-48); MONOCYTES % (MANUAL) 9 % (0-11.0); NEUTROPHILS % (MANUAL) 69 (42-76)
--- NOTE | 2021-03-06 05:07 | NUR ---
Patient discharged to home in stable condition. Written and verbal after care instructions given. Patient verbalizes understanding of instruction.
[2021-03-06 05:08] VITALS: BP 118/74
== END 2021-03-06 05:09 | disposition home or self-care (01) ==
LOC: ER 01:31
DX: R10.31 Right lower quadrant pain (principal); R51.9 Headache, unspecified; I10 Essential (primary) hypertension; K21.9 Gastro-esophageal reflux disease without esophagitis; Z98.890 Other specified postprocedural states; Z88.1 Allergy status to other antibiotic agents; Z91.048 Other nonmedicinal substance allergy status; Z79.899 Other long term (current) drug therapy; W06.XXXA Fall from bed, initial encounter; Y93.89 Activity, other specified; Y92.89 Other specified places as the place of occurrence of the external cause; Y99.8 Other external cause status
CPT/HCPCS: 36415; 70450; 72125; 74177; 80048; 85007; 85025; 99285; Q9967